=== PATIENT | male | born 1985 | race Caucasian/White ===

== ENCOUNTER 2017-06-16 09:19 | Emergency (ER) | payer BC ==
[2017-06-16] MEDS ORDERED: NS 0.9% 1000 ML* 1,000 ML IV ONE (09:33)
[2017-06-16 10:11] LABS: Add Diff/Slide Review? Slide Review Added; Comments Flag Yes; Hematocrit 43 % (42-52); Hemoglobin 14.2 g/dl (14.0-18.0); Mean Corpuscular HGB Conc 33 g/dl (31-36); Mean Corpuscular Hemoglobin 30 pg (27-31); Mean Corpuscular Volume 91 fL (80-94); Mean Platelet Volume 9 um3 (7.4-10.4); Red Cell Distribution Width 13 % (10.5-15); White Blood Count 10.3 10^3/ul (3.5-10.8)
--- NOTE | 2017-06-16 10:17 | RAD ---
INDICATION: Seizure. COMPARISON: There are no prior studies available for comparison. TECHNIQUE: A portable view of the chest was obtained. FINDINGS: Cardiac and mediastinal contours appear to be within normal limits. The lungs are clear. No pleural effusion is seen. IMPRESSION: NO EVIDENCE FOR ACUTE DISEASE.
[2017-06-16 10:21] LABS: Albumin 4.4 g/dL (3.2-5.2); BUN/Creatinine Ratio 12.5 (8-20); Calcium 9.5 mg/dL (8.6-10.3); EGFR African American 108.6 (>60); EGFR Non-African American 84.4 (>60); Globulin 2.8 g/dL (2-4); Potassium 3.4 mmol/L (3.5-5.0); Total Bilirubin 0.8 mg/dL (0.2-1.0); Total Protein 7.2 g/dL (6.4-8.9)
[2017-06-16] MEDS ORDERED: Potassium Chlor TAB* 20 MEQ TAB.ER PO ONE (10:29)
[2017-06-16 11:10] LABS: TSH (Thyroid Stimulating Horm) 3.31 mcIU/mL (0.34-5.60)
[2017-06-16 12:44] LABS: Urine Bacteria Absent (Absent); Urine Bilirubin Negative (Negative); Urine Glucose Negative (Negative); Urine Nitrite Negative (Negative); Urine Sperm Present (Absent)
[2017-06-16 12:49] LABS: Benzodiazepine Urine Screen None Detected (None Detect)
--- NOTE | 2017-06-16 14:13 | ED ---
Delonte Carranza Auryana, scribed for Milad Crystal MD on 06/16/17 at 0939 . Neurological HPI - HPI Summary HPI Summary: 31 year old male BIBA s/p seizure today. Patient reports that he ingested cocaine at 02:00 this morning. Per report - seizure lasted 5 minutes with (+) tongue bite - c/o swollen tongue. Patient denies any chest pain, SOB, CHRISTIANSON, dizziness, or any U.T.I. symptoms. He reports a history of seizures - was previously Rx Depakote for seizures but has not been medication complaint for 7 years - last seizure 4 years ago. PMHx is significant for epilepsy and kidney stone removal. SHx is significant for tobacco, alcohol and recreational drug use - cocaine and marijuana. FHx is significant for DM. - History of Current Complaint Chief Complaint: EDSeizure Stated Complaint: SEIZURE Time Seen by Provider: 06/16/17 09:24 Hx Obtained From: Patient Onset/Duration: Sudden Onset, Still Present Timing: Intermittent Episodes Lasting: - lasting 5 minutes Seizure Severity: Moderate Number of Seizures: 1 Neurological Deficit Location: Generalized Pain Intensity: 0 Pain Scale Used: 0-10 Numeric Character: Other: - tongue swelling Aggravating: Drug Abuse - cocaine use Associated Signs and Symptoms: Positive: Trauma: Recent - tongue swelling Similar Episode/Dx as: yes- Hx of seizures Related Hx: Alcohol/Drug Abuse - marijuana for seizures, Medication Non-Comliant , Seizure - history - Allergy/Home Medications Allergies/Adverse Reactions: Allergies Allergy/AdvReac Type Severity Reaction Status Date / Time No Known Allergies Allergy Verified 06/16/17 10:02 PMH/Surg Hx/FS Hx/Imm Hx Neurological History: Reports: Hx Seizures - EPILEPSY - Surgical History Surgery Procedure, Year, and Place: kidney stone removal Infectious Disease History: Denies: Traveled Outside the [place] in Last 30 Days - Family History Known Family History: Positive: Diabetes - Social History Occupation: Employed Full-time - OTHER Lives: Alone Alcohol Use: Occasionally Hx Substance Use: Yes Substance Use Type: Reports: Cocaine, Marijuana Hx Tobacco Use: Yes Smoking Status (MU): Former Smoker Review of Systems Constitutional: Negative Positive: Other - no dizziness. Negative: Fever Eyes: Negative Positive: Other - tongue swelling Cardiovascular: Negative Negative: Chest Pain Respiratory: Negative Negative: Shortness Of Breath Gastrointestinal: Negative Genitourinary: Negative Positive: no symptoms reported - no U.T.I. symptoms Musculoskeletal: Negative Skin: Negative Neurological: Other - seizure - lasting 5 minutes, no resolved Negative: Headache Psychological: Normal All Other Systems Reviewed And Are Negative: Yes Physical Exam - Summary Physical Exam Summary: VITAL SIGNS: Reviewed. GENERAL: ~Patient is a well-developed and nourished male who is lying comfortable in the stretcher. ~Patient is not in any acute respiratory distress. HEAD AND FACE: No signs of trauma. ~No ecchymosis, hematomas or skull depressions. No sinus tenderness. EYES: PERRLA, EOMI x 2, No injected conjunctiva, no nystagmus. No photophobia. EARS: Hearing grossly intact. Ear canals and tympanic membranes are within normal limits. MOUTH: Oropharynx within normal limits. Small abrasion on the left side of the tongue NECK: Supple, trachea is midline, no adenopathy, no JVD, no carotid bruit, no c- spine tenderness, neck with full ROM. No meningeal signs, no Kernig's or brudzinskis signs. CHEST: Symmetric, no tenderness at palpation LUNGS: Clear to auscultation bilaterally. No wheezing or crackles. CVS: Regular rate and rhythm, S1 and S2 present, no murmurs or gallops appreciated. ABDOMEN: Soft, non-tender. No signs of distention. No rebound no guarding, and no masses palpated. Bowel sounds are normal. EXTREMITIES: FROM in all major joints, no edema, no cyanosis or clubbing. NEURO: Alert and oriented x 3. No acute neurological deficits. Speech is normal and follows commands. SKIN: Dry and warm Triage Information Reviewed: Yes Vital Signs On Initial Exam: Initial Vitals Temp Pulse Resp BP Pulse Ox 99.2 F 98 14 138/77 98 06/16/17 09:27 06/16/17 09:27 06/16/17 09:27 06/16/17 09:27 06/16/17 09:27 Vital Signs Reviewed: Yes Diagnostics - Vital Signs Vital Signs Temp Pulse Resp BP Pulse Ox 06/16/17 13:00 73 20 99 06/16/17 12:30 71 20 114/60 99 06/16/17 12:23 79 19 126/61 99 06/16/17 12:00 77 19 99 06/16/17 11:00 84 21 97 06/16/17 10:01 95 06/16/17 10:00 84 25 95 06/16/17 09:30 86 24 138/77 94 06/16/17 09:28 140/76 06/16/17 09:27 99.2 F 98 14 138/77 98 - Laboratory Lab Results: Lab Results 06/16/17 06/16/17 06/16/17 Range/Units 09:54 09:54 09:54 WBC 10.3 (3.5-10.8) 10^3/ul RBC 4.70 (4.0-5.4) 10^6/ul Hgb 14.2 (14.0-18.0) g/dl Hct 43 (42-52) % MCV 91 (80-94) fL MCH 30 (27-31) pg MCHC 33 (31-36) g/dl RDW 13 (10.5-15) % Plt Count 162 (150-450) 10^3/ul MPV 9 (7.4-10.4) um3 Neut % (Auto) 81.0 (38-83) % Lymph % (Auto) 8.3 L (25-47) % [place] % (Auto) 8.3 (1-9) % Eos % (Auto) 0.2 (0-6) % Baso % (Auto) 2.2 H (0-2) % Absolute Neuts (auto) 8.3 H (1.5-7.7) 10^3/ul Absolute Lymphs (auto) 0.8 L (1.0-4.8) 10^3/ul Absolute Monos (auto) 0.9 H (0-0.8) 10^3/ul Absolute Eos (auto) 0 (0-0.6) 10^3/ul Absolute Basos (auto) 0.2 (0-0.2) 10^3/ul Absolute Nucleated RBC 0 10^3/ul Nucleated RBC % 0 INR (Anticoag Therapy) 1.05 (0.89-1.11) Sodium 134 (133-145) mmol/L Potassium 3.4 L (3.5-5.0) mmol/L Chloride 102 (101-111) mmol/L Carbon Dioxide 23 (22-32) mmol/L Anion Gap 9 (2-11) mmol/L BUN 13 (6-24) mg/dL Creatinine 1.04 (0.67-1.17) mg/dL Est GFR ( Amer) 108.6 (>60) Est GFR (Non-Af Amer) 84.4 (>60) BUN/Creatinine Ratio 12.5 (8-20) Glucose 111 H (70-100) mg/dL Lactic Acid (0.5-2.0) mmol/L Calcium 9.5 (8.6-10.3) mg/dL Magnesium 2.0 (1.9-2.7) mg/dL Total Bilirubin 0.80 (0.2-1.0) mg/dL AST 19 (13-39) U/L ALT 22 (7-52) U/L Alkaline Phosphatase 41 (34-104) U/L Total Creatine Kinase 256 H (10-223) U/L Total Protein 7.2 (6.4-8.9) g/dL Albumin 4.4 (3.2-5.2) g/dL Globulin 2.8 (2-4) g/dL Albumin/Globulin Ratio 1.6 (1-3) TSH 3.31 (0.34-5.60) mcIU/mL Urine Color Urine Appearance Urine pH (5-9) Ur Specific [place] (1.010-1.030) Urine Protein (Negative) Urine Ketones (Negative) Urine Blood (Negative) Urine Nitrate (Negative) Urine Bilirubin (Negative) Urine Urobilinogen (Negative) Ur Leukocyte Esterase (Negative) Urine WBC (Auto) (Absent) Urine RBC (Auto) (Absent) Urine Bacteria (Absent) Urine Sperm (Absent) Urine Glucose (Negative) Urine Opiates Screen (None Detect) Ur Barbiturates Screen (None Detect) Ur Phencyclidine Scrn (None Detect) Ur Amphetamines Screen (None Detect) U Benzodiazepines Scrn (None Detect) Urine Cocaine Screen (None Detect) U Cannabinoids Screen (None Detect) 06/16/17 06/16/17 06/16/17 Range/Units 09:54 12:20 12:20 WBC (3.5-10.8) 10^3/ul RBC (4.0-5.4) 10^6/ul Hgb (14.0-18.0) g/dl Hct (42-52) % MCV (80-94) fL MCH (27-31) pg MCHC (31-36) g/dl RDW (10.5-15) % Plt Count (150-450) 10^3/ul MPV (7.4-10.4) um3 Neut % (Auto) (38-83) % Lymph % (Auto) (25-47) % [place] % (Auto) (1-9) % Eos % (Auto) (0-6) % Baso % (Auto) (0-2) % Absolute Neuts (auto) (1.5-7.7) 10^3/ul Absolute Lymphs (auto) (1.0-4.8) 10^3/ul Absolute Monos (auto) (0-0.8) 10^3/ul Absolute Eos (auto) (0-0.6) 10^3/ul Absolute Basos (auto) (0-0.2) 10^3/ul Absolute Nucleated RBC 10^3/ul Nucleated RBC % INR (Anticoag Therapy) (0.89-1.11) Sodium (133-145) mmol/L Potassium (3.5-5.0) mmol/L Chloride (101-111) mmol/L Carbon Dioxide (22-32) mmol/L Anion Gap (2-11) mmol/L BUN (6-24) mg/dL Creatinine (0.67-1.17) mg/dL Est GFR ( Amer) (>60) Est GFR (Non-Af Amer) (>60) BUN/Creatinine Ratio (8-20) Glucose (70-100) mg/dL Lactic Acid 2.2 H* (0.5-2.0) mmol/L Calcium (8.6-10.3) mg/dL Magnesium (1.9-2.7) mg/dL Total Bilirubin (0.2-1.0) mg/dL AST (13-39) U/L ALT (7-52) U/L Alkaline Phosphatase (34-104) U/L Total Creatine Kinase (10-223) U/L Total Protein (6.4-8.9) g/dL Albumin (3.2-5.2) g/dL Globulin (2-4) g/dL Albumin/Globulin Ratio (1-3) TSH (0.34-5.60) mcIU/mL Urine Color Yellow Urine Appearance Clear Urine pH 6.0 (5-9) Ur Specific [place] 1.012 (1.010-1.030) Urine Protein 2+(100 mg/dl) H (Negative) Urine Ketones 1+ H (Negative) Urine Blood Negative (Negative) Urine Nitrate Negative (Negative) Urine Bilirubin Negative (Negative) Urine Urobilinogen Negative (Negative) Ur Leukocyte Esterase Negative (Negative) Urine WBC (Auto) Absent (Absent) Urine RBC (Auto) Absent (Absent) Urine Bacteria Absent (Absent) Urine Sperm Present H (Absent) Urine Glucose Negative (Negative) Urine Opiates Screen None detected (None Detect) Ur Barbiturates Screen None detected (None Detect) Ur Phencyclidine Scrn None detected (None Detect) Ur Amphetamines Screen Presumptive positive H (None Detect) U Benzodiazepines Scrn None detected (None Detect) Urine Cocaine Screen Presumptive positive H (None Detect) U Cannabinoids Screen Presumptive positive H (None Detect) Result Diagrams: 06/16/17 09:54 06/16/17 09:54 Lab Statement: Any lab studies that have been ordered have been reviewed, and results considered in the medical decision making process. - Radiology CXR Xray Interpretation: No Acute Changes Radiology Interpretation Completed By: Radiologist - EKG 10:50 EKG Interpretation: sinus arrhythmia @ 64 BPM, Q waves in lead III Re-Evaluation - Re-Evaluation First Eval Re-Evaluation Time: 12:19 - discussed labs and disposition Comment: He does not want a neurology consult becausse he does not want to be on any medicaitons for his seizures. He would like to continue marijuana use for mangagement of seizures. Course/Dx - Course Assessment/Plan: 31 year old male BIBA s/p seizure today. Patient reports that he ingested cocaine at 02:00 this morning. Per report - seizure lasted 5 minutes with (+) tongue bite - c/o swollen tongue. Patient denies any chest pain , SOB, CHRISTIANSON, dizziness, or any U.T.I. symptoms. He reports a history of seizures - was previously Rx Depakote for seizures but has not been medication complaint for 7 years - last seizure 4 years ago. PMHx is significant for epilepsy and kidney stone removal. SHx is significant for tobacco, alcohol and recreational drug use - cocaine and marijuana. FHx is significant for DM. Test results show without any significant abnormalities except for potassium 3.4 for which he was given potassium chloride,. Lactic acid 2.2, and CPK 256. UA is negative for U.T.I. UA toxicology is (+) for amphetamines, cocaine, and cannabinoids. In ED course, patient remained stable, and was hydrated. Patient declined any neurology consult since he will not follow up with neurology and will not take any medications. He reports that he is well controlled with marijuana. Therefore we will discharge the patient home with follow up to PCP. I discussed all the findings and test results with the patient. Patient was instructed to return to the emergency room immediately if any of the symptoms return or worsens. Patient understands and agrees. Plan of care was discussed with the patient and patient understands and agrees with the plan of care. All questions were answered at patient satisfaction. There were no further complaints or concerns. Patient is alert and oriented x 3. Patient vital signs are stable. Patient is to follow up with primary care physician in the next 2 to 3 days. Patient understands and agrees. - Differential Dx Differential Diagnoses Neuro: Positive: Seizure Disorder - Diagnoses Provider Diagnoses: Epilepsy Discharge - Discharge Plan Condition: Stable Disposition: HOME Patient Education Materials: Epilepsy (ED) Referrals: Non Staff,Doctor [Primary Care Provider] - 2 Days The documentation as recorded by the Delonte salvador Auryana accurately reflects the service I personally performed and the decisions made by me, Milad Crystal MD.
== END 2017-06-16 13:50 | disposition home or self-care (01) ==
LOC: ED 09:19
DX: G40.909 Epilepsy, unspecified, not intractable, without status epilepticus (principal)
CPT/HCPCS: 36415; 71010; 80053; 80307; 81003; 81015; 82550; 83605; 83735; 84443; 85025; 85610; 99283; A9270-GY